=== PATIENT | female | born 1980 | race Asian ===

== ENCOUNTER 2017-02-17 14:30 | Emergency (ER) | payer MEDICAID ==
[~2017-02-17] VITALS: Ht 157.5 cm; Wt 56.5 kg
[~2017-02-17 14:30] MED LIST: BENZ1TAB70 PO; CYCL10 PO; DIVA500T35 PO; NAPR-58 PO; RISP3 PO
[2017-02-17] MEDS ORDERED: ARIP20TA8 PO (14:52)
[2017-02-17 16:21] VITALS: BP 113/72
== END 2017-02-17 17:14 | disposition home or self-care (01) ==
LOC: EMS 14:32
DX: J40 Bronchitis, not specified as acute or chronic (principal); Z88.8 Allergy status to other drugs, medicaments and biological substances
CPT/HCPCS: 99283